=== PATIENT | female | born 1985 | race Hispanic/Latino ===

== ENCOUNTER 2024-05-01 10:10 | Emergency (ER) | payer OTHER ==
[~2024-05-01] VITALS: Ht 160 cm; Wt 91.2 kg
--- NOTE | 2024-05-01 11:12 | HMCIMG ---
US OB <14 WEEKS REASON: vaginal bleeding during approx 10 weeks COMPARISON: None TECHNIQUE: Transabdominal and transvaginal pelvic sonogram was performed. FINDINGS: Uterus is 8.6 x 5.7 x 7.8 cm. There is an intrauterine gestational sac. There is a pole corresponding with a 7 week 4 day IUP. There is no heart beat. heart beat should be easily visible at this stage of gestation. Findings are consistent with demise and a nonviable gestation. Right ovary appears normal. Left ovary was not separately identified. There are no adnexal masses. There is no free fluid in the cul-de-sac. IMPRESSION: 1. Intrauterine gestation with a pole corresponding with a 7 week 4 day IUP. 2. There is no heart beat, findings are consistent with demise and a nonviable gestation.
--- NOTE | 2024-05-01 11:30 | ERN ---
General Chief Complaint: Vaginal Bleeding Stated Complaint: VAGINAL BLEEDING, 10 WEEKS Time Seen by MD: 10:12 Time Seen by Midlevel: 10:12 Source: patient History of Present Illness Initial Comments Patient is a 39-year-old female presenting to the emergency department with vaginal bleeding that started three days ago but worsened today. She reports being approximately 10 weeks based on her last menstrual period. She has an appointment scheduled with her OBGYN later today but has not seen an OBGYN for this . She reports taking vitamins and denies any other medication at this time. She is a A0. Past Medical History Past Medical History: No Pertinent History Past Surgical History: Female( History) LMP: Feb 23, 2024 : 2 Para: 1 Aborts: 0 ROS Dictation CONSTITUTIONAL: Negative except for HPI HEAD/FACE: Negative except for HPI EENT: Negative except for HPI RESPIRATORY: Negative except for HPI GASTROINTESTINAL/ABDOMINAL: Negative except for HPI GENITOURINARY: Negative except for HPI MUSCULOSKELETAL: Negative except for HPI INTEGUMENTARY: Negative except for HPI NEUROLOGICAL/PSYCH: Negative except for HPI HEMATOLOGIC/LYMPHATIC: Negative except for HPI All Systems Negative, Except as noted above. 13 point review of systems assessed and all negative except for above. Physical Exam Physical Exam Dictation Vital Signs reviewed General Appearance: Alert, oriented x 3, no acute distress, well developed, nourished. Head and Face: non-traumatic. Eyes: PERRL, pink conjunctivas, eyelid no trauma, anterior chamber with arcus senilis. Ears: Pinnas intact and no signs of trauma or erythema ear canals clear and no discharge TM no erythema Nose: No discharge, no bleeding. Oropharynx: Mouth normal, tongue pink, pharynx clear,no erythema, tonsils no exudates, no abscesses noted, mucous membrane moist Neck: Supple, non-tender, no thyromegaly, no masses, no JVD, no bruits Breast:Deferred Chest:No tenderness, no crepitus, no paradoxical movement, no retractions Lungs:Clear, well-ventilated, symmetric, no rales, no wheezing, no rhonchi, no stridor, good breath sounds bilaterally Heart: Regular rate, regular rhythm, no murmur, no gallops Vascular: no peripheral edema, Abdomen: Soft, positive bowel sounds, nondistended, no guarding, nontender, no rebound, no masses no hepatomegaly, no splenomegaly, no Chung's sign, no hernias. Rectal: Deferred Genital: Deferred Neurological: Normal speech, motor function intact, sensory function intact Musculoskeletal: Neck nontender, full range of motion, back nontender, full range of motion, Extremities: nontender, full range of motion Skin: Color pink, dry, no turgor, no rash, no lacerations, no abrasions, no contusions. Lymphatic: Deferred Results Laboratory and Microbiology Lab and Micro Result Laboratory Tests Test 05/01/24 11:10 05/01/24 11:56 White Blood Count 5.8 K/uL (4.8-10.8) Red Blood Count 4.56 MIL/uL (4.00-5.50) Hemoglobin 13.5 g/dL (12.0-16.0) Hematocrit 40.7 % (36-48) Mean Corpuscular Volume 89.3 fL (79-99) Mean Corpuscular Hemoglobin 29.6 pg (27.0-33.0) Mean Corpuscular Hemoglobin Concent 33.2 g/dL (32.0-36.0) Red Cell Distribution Width 12.9 % (11.0-15.5) Platelet Count 220 K/uL (130-400) Mean Platelet Volume 10.3 fL (7.5-10.5) Immature Granulocyte % (Auto) 0.2 % (0-1) Neutrophils (%) (Auto) 62.6 % (40.0-77.0) Lymphocytes (%) (Auto) 27.3 % (21.0-51.0) Monocytes (%) (Auto) 8.4 % (3.0-13.0) Eosinophils (%) (Auto) 1.2 % (0.0-8.0) Basophils (%) (Auto) 0.3 % (0.0-5.0) Neutrophils # (Auto) 3.6 K/uL (1.8-7.7) Lymphocytes # (Auto) 1.6 K/uL (1.0-4.8) Monocytes # (Auto) 0.5 K/uL (0.1-1.0) Eosinophils # (Auto) 0.07 K/uL (0.00-0.70) Basophils # (Auto) 0.02 K/uL (0.00-0.20) Absolute Immature Granulocyte (auto 0.01 K/uL (0-1) Nucleated Red Blood Cells 0.0 % (0.0-0.19) Sodium Level 137 mmol/L (136-145) Potassium Level 4.1 mmol/L (3.5-5.1) Chloride Level 102 mmol/L (101-111) Carbon Dioxide Level 30 mmol/L (21-32) Blood Urea Nitrogen 7 mg/dL (7-18) Creatinine 0.6 mg/dL (0.5-1.0) Glomerular Filtration Rate Calc 116 mL/min (>90) Random Glucose 109 mg/dL (70-105) H Total Calcium 9.2 mg/dL (8.5-10.1) Human Chorionic Gonadotropin, Quant 18141 mIU/mL (0-5) H Urine Color YELLOW (YELLOW) Urine Appearance CLOUDY (CLEAR) H Urine pH 6.5 (5.0-8.0) Urine Specific [place] 1.026 (1.001-1.031) Urine Protein 50 mg/dL (NEGATIVE) H Urine Glucose (UA) NEGATIVE mg/dL (NEGATIVE) Urine Ketones NEGATIVE mg/dL (NEGATIVE) Urine Occult Blood LARGE (NEGATIVE) H Urine Nitrate NEGATIVE (NEGATIVE) Urine Bilirubin NEGATIVE mg/dL (NEGATIVE) Urine Urobilinogen 0.2 mg/dL (0.2-1.0) Urine Leukocyte Esterase 250 Lily/uL (NEGATIVE) H Urine RBC 6-10 /HPF (0-1) H Urine WBC 11-25 /HPF (0-1) H Urine Squamous Epithelial Cells MANY /HPF (0-2) Urine Bacteria FEW /HPF (None Seen) Labs Reviewed?: Yes MDM MDM: Patient is a 39-year-old female presenting to the emergency department with vaginal bleeding that started three days ago but worsened today. She reports being approximately 10 weeks based on her last menstrual period. She has an appointment scheduled with her OBGYN later today but has not seen an OBGYN for this . She reports taking vitamins and denies any other medication at this time. She is a A0. On physical examination patient is in no acute distress. Initial vital signs are stable. Her CBC shows no leukocytosis. Her chemistries [place] [id number]. Her pelvic ultrasound reveals an intrauterine gestation with pole correspon ding with a seven week four day IUP. There was no heartbeat. Findings are consistent with demise any nonviable gestation. Patient will need to follow up outpatient with her OBGYN for possible D&C. At this time patient is not septic. Her vital signs are stable and she is nontoxic appearing. Her CBC shows no leukocytosis. Her urinalysis does show evidence of infection. Patient was given Rocephin IM in the emergency department and will be discharged home on oral antibiotics. Return precautions were discussed Differential diagnosis: 1st trimester , demise, threatened , miscarriage There are no social concerns with this patient. Prescription drug management Prescriptions will include: Keflex Medical management and examination interpretation discussions were had by me with other qualified healthcare professionals as indicated for the patient's care. ED Course Orders Procedure Category Date Status Time Cbc With Differential LAB 05/01/24 Complete 10:13 Basic Metabolic Panel LAB 05/01/24 Complete 10:13 Urinalysis Profile LAB 05/01/24 Complete 10:13 Hcg,Quantitative LAB 05/01/24 Complete 10:13 Us Ob <14 Weeks US 05/01/24 Resulted 10:13 Culture Urine SAYRA 05/01/24 In Process 12:30 Ceftriaxone 1g Vial PHA 05/01/24 Transmitted (Rocephine 1g Inj) 13:00 Vital Signs Date Time Temp Pulse Resp B/P (MAP) Pulse Ox O2 Delivery O2 Flow Rate FiO2 05/01/24 10:18 97.9 100 20 139/95 96 Room Air 0 [place] [id number] [address] IMAGING REPORT Signed PATIENT: SONYA BURTON MR#: [id number] : 1985 SEX: F AGE: 39 LOCATION: ED ORDER [id number] STATUS: REG ER REPORT#: [id number] SERVICE 1013 REASON: vaginal bleeding during approx 10 weeks ORDERING PHYSICIAN: RAVINDRA AN PROCEDURE: OB <14 - US OB <14 WEEKS US OB <14 WEEKS REASON: vaginal bleeding during approx 10 weeks COMPARISON: None TECHNIQUE: Transabdominal and transvaginal pelvic sonogram was performed. FINDINGS: Uterus is 8.6 x 5.7 x 7.8 cm. There is an intrauterine gestational sac. There is a pole corresponding with a 7 week 4 day IUP. There is no heart beat. heart beat should be easily visible at this stage of gestation. Findings are consistent with demise and a nonviable gestation. Right ovary appears normal. Left ovary was not separately identified. There are no adnexal masses. There is no free fluid in the cul-de-sac. IMPRESSION: 1. Intrauterine gestation with a pole corresponding with a 7 week 4 day IUP. 2. There is no heart beat, findings are consistent with demise and a nonviable gestation. DICTATED BY: DAMIAN COX MD DATE: 05/01/24 1107 ELECTRONICALLY SIGNED BY: DAMIAN COX MD DATE: 05/01/24 1112 DX & DISP Disposition: Discharge Departure Impression: Primary Impression: demise Condition: Stable Additional Instructions: Your blood [place] [id number]. Your urinalysis is consistent with infection. I have given you a prescription for oral antibiotics for outpatient management. Your pelvic ultrasound shows an intrauterine gestation with a pole corresponding with a seven week four day intrauterine however, there was no heartbeat. These findings are consistent with demise and a nonviable gestation. You will need to follow up with your OBGYN for repeat ultrasound and repeat hCG testing. Please return to the ER if you develop any new or worsening symptoms. Referrals: SELF,REFERRAL (PCP) Time of Disposition: 12:37 I have reviewed the case, and I agree with, Diagnosis and Plan I performed the substantive portion of the visit. I have reviewed and personally made and approve the management plan that is documented in the note by myself or the SHARONDA. I acknowledge for responsibility for the patient's management plan. RAVINDRA AN May 01, 2024 11:30
[2024-05-01 11:32] LABS: BASOPHILS # (AUTO) 0.02 K/uL (0.00-0.20); BASOPHILS % (AUTO) 0.3 % (0.0-5.0); EOSINOPHILS # (AUTO) 0.07 K/uL (0.00-0.70); EOSINOPHILS % (AUTO) 1.2 % (0.0-8.0); HEMATOCRIT 40.7 % (36-48); IMMATURE GRANULOCYTE ABSOLUTE 0.01 K/uL (0-1); LYMPHOCYTES # (AUTO) 1.6 K/uL (1.0-4.8); LYMPHOCYTES % (AUTO) 27.3 % (21.0-51.0); MEAN CORPUSCULAR HEMOGLOBIN 29.6 pg (27.0-33.0); MEAN CORPUSCULAR HGB CONC 33.2 g/dL (32.0-36.0); MEAN CORPUSCULAR VOLUME 89.3 fL (79-99); MONOCYTES # (AUTO) 0.5 K/uL (0.1-1.0); MONOCYTES % (AUTO) 8.4 % (3.0-13.0); NEUTROPHILS # (AUTO) 3.6 K/uL (1.8-7.7); NEUTROPHILS % (AUTO) 62.6 % (40.0-77.0); PLATELET COUNT (AUTO) 220 K/uL (130-400); RED BLOOD CELL COUNT(AUTO) 4.56 MIL/uL (4.00-5.50); RED CELL DISTRIBUTION WIDTH 12.9 % (11.0-15.5); WHITE BLOOD COUNT (AUTO) 5.8 K/uL (4.8-10.8)
[2024-05-01 11:40] LABS: CREATININE 0.6 mg/dL (0.5-1.0); POTASSIUM 4.1 mmol/L (3.5-5.1)
[2024-05-01 12:28] LABS: APPEARANCE,URINE CLOUDY (CLEAR); BILIRUBIN,URINE NEGATIVE (NEGATIVE); COLOR,URINE YELLOW (YELLOW); GLUCOSE, URINE (UA) NEGATIVE (NEGATIVE); KETONES,URINE NEGATIVE (NEGATIVE); LEUKOCYTE ESTERASE ,URINE 250 Leu/uL (NEGATIVE); NITRATE,URINE NEGATIVE (NEGATIVE); OCCULT BLOOD,URINE LARGE (NEGATIVE); PH,URINE 6.5 (5.0-8.0); PROTEIN,URINE 50 mg/dL (NEGATIVE); UROBILINOGEN,URINE 0.2 mg/dL (0.2-1.0)
[2024-05-01 12:30] LABS: ADD UA MICROSCOPIC YES
[2024-05-01 12:33] LABS: BACTERIA,URINE FEW /HPF (None Seen); MUCUS,URINE MANY LPF (None Seen); SQUAMOUS EPITHELIAL CELL,UR MANY /HPF (0-2)
[2024-05-01] MEDS ORDERED: CEPH500B PO (13:16)
[2024-05-01] MEDS: LIDOCAINE HCL 1% 20 ML VIAL INJ SCH (13:19)
[2024-05-01] MEDS: cefTRIAXone 1G VIAL IM ONE (13:19)
[2024-05-01] MEDS: LIDOCAINE HCL 1% 20 ML VIAL ONE (13:20)
[2024-05-01 13:24] VITALS: BP 129/76; PULSE 75; RESP 18; TEMP 98.1; O2SAT 99
== END 2024-05-01 13:25 | disposition home or self-care (01) ==
LOC: EDH 10:10
DX: O36.4XX0 Maternal care for intrauterine death, not applicable or unspecified (principal); R10.2 Pelvic and perineal pain; Z3A.10 10 weeks gestation of pregnancy
CPT/HCPCS: 99285; 76801; 80048; 84702; 85025; 87086; 81001; 36415; 96372; J0696